=== PATIENT | female | born 1940 | race Caucasian/White ===

== ENCOUNTER 2018-01-19 13:00 | Inpatient (IN) | payer MEDICARE ==
[2018-01-28 16:07] VITALS: BMI 39.6
[2018-02-02] MEDS ORDERED: Levofloxacin 500 mg/D5W 100 ml Premix Bag ONE (06:06)
[2018-02-02] MEDS ORDERED: Midazolam HCl 2 mg/2 ml Vial ONE (06:26)
[2018-02-02] MEDS ORDERED: Fentanyl 100 MCG/2 ML VIAL ONE ×2 (06:26→08:52)
[2018-02-02] MEDS ORDERED: Vancomycin HCl 1.5 GM in Sodium Chloride 0.9% 250 ML 300 ML IVPB SCH ×2 (06:30→18:00)
[2018-02-02] MEDS ORDERED: Zolpidem Tartrate 5 MG TAB PO PRN ×2 (06:46→07:02)
[2018-02-02] MEDS ORDERED: Promethazine HCl 25 MG/ML VIAL IM PRN ×3 (06:46→08:04)
[2018-02-02] MEDS ORDERED: traMADol HCl 50 MG TAB PO PRN ×2 (06:46→07:02)
[2018-02-02] MEDS ORDERED: Ondansetron HCl/PF 4 MG/2 ML Vial IVP PRN ×3 (06:46→08:04)
[2018-02-02] MEDS ORDERED: Fentanyl 100 MCG/2 ML VIAL IV PRN (06:47)
[2018-02-02] MEDS ORDERED: HYDROcodone/Acetaminophen 7.5/325 mg Tablet PO PRN (06:48)
[2018-02-02] MEDS ORDERED: Acetaminophen 325 MG TAB PO PRN (07:02)
[2018-02-02] MEDS ORDERED: HYDROcodone/Acetaminophen 10/325 mg Tablet PO PRN ×2 (07:02)
[2018-02-02] MEDS ORDERED: diphenhydrAMINE 25 MG CAP PO PRN (07:02)
[2018-02-02] MEDS ORDERED: Fentanyl 250 MCG/5 ML VIAL ONE (07:05)
[2018-02-02] MEDS ORDERED: Tranexamic Acid 1,000 MG in Sodium Chloride 0.9% 100 ML IVPB SCH (07:15)
--- NOTE | 2018-02-02 07:59 | RAD ---
TWO VIEWS CHEST: Date: 02-02-18 Comparison: 04-15-17 History: Pre-operative patient. FINDINGS: There is atherosclerotic calcification in the aortic arch. No pneumothorax, pleural fluid, focal cons olidation, or alveolar edema. There is multilevel disc space narrowing and anterior osteophyte formation within the thoracic spine. IMPRESSION: No acute findings. POS: JOSE EDUARDO
[2018-02-02] MEDS ORDERED: Promethazine HCl 25 MG/ML VIAL SLOW IVP PRN (08:04)
--- NOTE | 2018-02-02 09:06 | OP ---
PREOPERATIVE DIAGNOSIS: Degenerative joint disease, left knee. POSTOPERATIVE DIAGNOSIS: Degenerative joint disease, left knee. SURGEON: Cristobal Polk M.D. TOBACCO DIPPER: Sarath Anders PA-C. BLOOD LOSS: Minimal. SPECIMEN: None. DRAINS: None. COMPLICATIONS: None. TOURNIQUET TIME: 52 minutes. IMPLANTS USED: James Triathlon 4 femur, 4 tibia, 9 mm polyethylene, A29 patella. PROCEDURE IN DETAIL: After informed consent was obtained in the preoperative holding area. The edouard ent was taken to the operative suite where general anesthesia was induced. Once adequate level of ge neral anesthesia was obtained, the patient was positioned and a well-padded tourniquet was placed rachael und the left proximal thigh. The left lower extremity was then prepped and draped in the usual steri le fashion. Prior to exsanguination, a time out was called and all members of the surgical team agre ed upon site, surgeon, and patient. The extremity was then exsanguinated and the tourniquet was rais ed. A midline longitudinal incision was then made directly over the patella extending two fingerbrea dths above the superior pole of the patella and two fingerbreadths inferior to the inferior patellar pole of the patella. Deeper subcutaneous layers were dissected sharply and local bleeding was contro lled with Bovie electrocautery. A quad tendon longitudinal split was then made sharply and a median parapatellar arthrotomy was carried out both sharp and with Bovie electrocautery, carried down to one fingerbreadth medial to the tibial tubercle. The knee was then placed into flexion and the patella was everted nicely, and a copious fat pad ectomy was performed allowing for greater exposure of the t ibia. The computer-assisted distal femoral fiducial was then placed and pinned firmly, and the dista l femoral cutting guide was pinned firmly into place. The oscillating saw was then used to remove th e appropriate amount of bone. The 4-in-1 cutting block was then placed on the distal femur and the o scillating saw was used to remove the appropriate amount of bone off of the anterior, posterior, and chamfer cuts. After completion of bone cuts, the anterior cruciate ligament was resected sharply and the posterior cruciate ligament retractor was placed and the tibia was subluxed for better exposure. Partial meniscectomies were carried out, and the tibial computer-assisted fiducial was pinned, and the cutting guide was placed. Oscillating saw was then used to remove the bone with Hohmann retracto rs used to take care and protect the collateral ligaments. After the tibial resection was performed, a laminar shape hand was placed in between the freshened bone cuts. The knee placed at 90 degrees and further bilateral meniscectomies were carried out, and the curved osteotome and curettage was used t o remove any excess bone spurs in the posterior compartment. Exparel was then injected into the post erior capsule, ryan-articular synovia, pre-patella synovia, and musculature surrounding the capsule. The trial femoral component, tibial baseplate were placed with the appropriate polyethylene trial in sert with an appropriate polyethylene spacer and patellar button. The knee was taken through full ra nge of motion with flexion and extension from 0-90 degrees and patellar broach squarely in the troch reji without any squinting or subluxation noted. The knee was also stable to varus and valgus stressi ng at 0, 15, 45, and 90 degrees of flexion. The drawer was negative. All trial components were then removed and the keel punch was used to provide the appropriate defect in the tibia with a mallet. Th e freshened bone cuts were copiously irrigated with pulsatile lavage of about 1-1/2 liters to remove all excess debris. The freshened bone cuts were then dried and with suction and lap sponge. The kne e was placed in flexion and retractors were placed to provide access to all bone cuts. Tobramycin im pregnated methyl methacrylate cement was then placed on the freshened bone cuts and implants which we re malleted firmly into place. Curettage and [place] elevators were used to remove any excess bone facundo ent. The knee was placed into full extension and the patellar button was placed under compression, a nd the cement was allowed to cure. Once completed, the components were again taken through full rang e of motion and copious irrigation of the knee was carried out with another liter of normal saline. All components were inspected fully with full range of motion and varus and valgus stressing. There w as no laxity noted and full extension was observed clinically. Primary closure was accomplished with #2 interrupted Vicryl stitch of the arthrotomy defect. This was oversewn with a #2 running Quill ba rbdianelys stitch. The gravitational platelet system was then injected into the arthrotomy prior to closur e. The subcutaneous layer was then closed with a running 0 barbed Monocryl stitch and skin closure a ccomplished with a running subcuticular 3-0 Monocryl barbed Quill stitch and augmented with cement on the skin. Tourniquet was lowered. Good spontaneous return of distal pulses was noted clinically an d a sterile dressing was applied to the incision. The procedure was terminated without any complicat ions. The patient was awakened in the operative suite and the tourniquet was removed, and the patien t was taken to the recovery room in stable condition.
--- NOTE | 2018-02-02 10:01 | RAD ---
TWO VIEWS RIGHT KNEE: History: Total knee arthroplasty. Comparison: None. FINDINGS: Post-surgical changes are identified. Alignment is near anatomic. IMPRESSION: Post surgical changes. POS: JOSE EDUARDO
[2018-02-02] MEDS: Levothyroxine Sodium 50 MCG TAB PO SCH (10:56)
[2018-02-02] MEDS: HYDROcodone/Acetaminophen 7.5/325 mg Tablet PO PRN ×2 (12:21→18:59)
[2018-02-02] MEDS: Lorazepam 1 MG TAB PO SCH ×2 (12:22→21:01)
[2018-02-02] MEDS: Donepezil HCl 10 MG TAB PO SCH (12:22)
[2018-02-02] MEDS: Aspirin 81 mg Enteric Coated Tablet PO SCH ×2 (12:23→21:00)
[2018-02-02] MEDS: Sodium Chloride 0.9% 1,000 ML IV SCH ×3 (12:27→23:56)
[2018-02-02] MEDS ORDERED: Ketorolac Tromethamine 30 MG/ML VIAL IVP PRN (14:10)
[2018-02-02] MEDS ORDERED: Bupivacaine HCl 0.5%/Epinephrine 1:200,000/PF 30 ml Vial ONE (14:15)
[2018-02-02] MEDS ORDERED: Bupivacaine/Epinephrine 0.25% 30 ML VIAL ONE (14:15)
[2018-02-02] MEDS ORDERED: Labetalol 100 MG/20 ML MDV ONE (14:55)
[2018-02-02] MEDS ORDERED: PROPOFOL 200 MG/20 ML VIAL ONE (14:55)
[2018-02-02] MEDS ORDERED: Dexamethasone 20 MG/5 ML VIAL ONE (14:55)
[2018-02-02] MEDS ORDERED: Lidocaine 1% PF 5 ML VIAL ONE (14:55)
[2018-02-02] MEDS ORDERED: FLU VACC TS2017-18 (>65YR) 0.5 ML SYRINGE IM ONE (18:15)
[2018-02-02] MEDS ORDERED: Prevnar 13-Val Conj/PF 0.5 ML SYRINGE IM ONE (18:30)
[2018-02-02] MEDS: diphenhydrAMINE 25 MG CAP PO SCH (21:00)
--- NOTE | 2018-02-02 21:00 | PDOC.PN ---
- Subjective Encounter Start Date: 02/02/18 Encounter Start Time: 20:45 Subjective: Consult for general med mgmt s/p L TKA. Hx of hypothyroidism, dementia -: anxiety and depression. Reviewed all pertinent hx, labs, rads. No new -: complaints currently. No SOB, CP, fever. - Objective MAR Reviewed: Yes Vital Signs & Weight: Vital Signs (12 hours) Temp Pulse Resp BP Pulse Ox 02/02/18 20:00 98.0 F 72 16 114/52 L 94 L 02/02/18 12:00 97.6 F 61 18 145/71 H 99 Weight Weight 203 lb I&O: 02/01/18 02/02/18 02/03/18 06:59 06:59 06:59 Intake Total 1650 Output Total 850 Balance 800 Additional Labs: Laboratory Tests 06/11/12 12/07/17 01/28/18 08:28 15:17 16:20 WBC Hgb Hct Plt Count PT INR APTT Sodium 138 Potassium 4.0 Chloride 105 Carbon Dioxide 23 Anion Gap 14 BUN 20 Est GFR (Non-Af Amer) 69 Creatinine 0.93 Estimated GFR (MDRD) 58 Glucose 111 H Calcium 9.4 TSH 3rd Generation 1.9456 01/28/18 01/28/18 16:20 16:20 WBC 6.8 Hgb 13.6 Hct 41.2 Plt Count 255 PT 12.8 INR 1.0 APTT 26.6 Sodium Potassium Chloride Carbon Dioxide Anion Gap BUN Est GFR (Non-Af Amer) Creatinine Estimated GFR (MDRD) Glucose Calcium TSH 3rd Generation Radiology Reviewed by me: Yes (PCXR - no acute findings) EKG Reviewed by me: Yes ( - NSR, no acute changes, HR 60's) Phys Exam - Physical Examination Constitutional: NAD HEENT: PERRLA, oral pharynx no lesions Neck: no JVD, supple Respiratory: no wheezing, clear to auscultation bilateral Cardiovascular: RRR Gastrointestinal: soft, non-tender, no distention, positive bowel sounds L knee with surgical dressing in place Musculoskeletal: pulses present, edema present Neurological: moves all 4 limbs Skin: normal turgor, cap refill <2 seconds Dx/Plan (1) Hypothyroidism Code(s): E03.9 - HYPOTHYROIDISM, UNSPECIFIED Status: Chronic Comment: continue Levothyroxine 50mcg po daily (2) Dementia Code(s): F03.90 - UNSPECIFIED DEMENTIA WITHOUT BEHAVIORAL DISTURBANCE Status: Chronic Comment: Continue Donezepil 10mg qam (3) CKD (chronic kidney disease) stage 3, GFR 30-59 ml/min Code(s): N18.3 - CHRONIC KIDNEY DISEASE, STAGE 3 (MODERATE) Status: Chronic Comment: Stable currently, avoid nephrotoxic meds and limit contrast exposure, continue IVF's 125ml/h (4) Status post left knee replacement Code(s): Z96.652 - PRESENCE OF LEFT ARTIFICIAL KNEE JOINT Status: Acute Comment: post-op L TKA 02/02/18, pain control, ASA 81mg BID, Joint U protocol, DVT ppx - Plan plan discussed w/ family, PT/OT, aids social worker, out of bed/ambulate, DVT proph w/SCDs Stable overall -: Continue pain control per Joint U protocol -: ASA 81mg BID -: Continue IVF's -: AM lab: CBC * Thank you for the consult, will continue to follow with primary service.
[2018-02-02] MEDS: Bupivacaine 0.5% 50 ML in Sodium Chloride 0.9% 50 ML NERVE BLCK SCH (21:02)
[2018-02-03] MEDS: traMADol HCl 50 MG TAB PO PRN (03:35)
[2018-02-03] MEDS: Bupivacaine 0.5% 50 ML in Sodium Chloride 0.9% 50 ML NERVE BLCK SCH ×2 (05:23→19:59)
[2018-02-03 05:47] LABS: Hemoglobin 10.8 g/dL (12.0-16.0); Mean Corpuscular HGB CONC 34.1 g/dL (32.0-36.0); Mean Corpuscular Hemoglobin 31.7 pg (27.0-31.0); Mean Platelet Volume 6.6 fL (7.4-10.4); Platelet Count 195 thou/uL (130-400); RBC Distribution Width 12.1 % (11.5-14.5); White Blood Cell (WBC) Count 7.9 thou/uL (4.8-10.8)
[2018-02-03] MEDS: HYDROcodone/Acetaminophen 7.5/325 mg Tablet PO PRN ×4 (07:25→23:54)
[2018-02-03] MEDS: Lorazepam 1 MG TAB PO SCH ×2 (07:28→19:54)
[2018-02-03] MEDS: Donepezil HCl 10 MG TAB PO SCH (08:52)
[2018-02-03] MEDS: Senokot S 8.6-50 MG TAB PO SCH ×2 (08:52→19:54)
[2018-02-03] MEDS: Levothyroxine Sodium 50 MCG TAB PO SCH (08:53)
[2018-02-03] MEDS: Aspirin 81 mg Enteric Coated Tablet PO SCH ×2 (08:53→19:54)
[2018-02-03] MEDS: Ferrous Gluconate 324 MG TAB PO SCH ×2 (08:53→19:54)
[2018-02-03] MEDS: Multivitamin W/ Minerals 1 TAB PO SCH (08:53)
[2018-02-03] MEDS: Sodium Chloride 0.9% 1,000 ML IV SCH ×2 (14:04→21:58)
[2018-02-03] MEDS: diphenhydrAMINE 25 MG CAP PO SCH (19:54)
--- NOTE | 2018-02-03 21:35 | PDOC.PN ---
- Subjective Encounter Start Date: 02/03/18 Encounter Start Time: 19:00 Patient seen and examined. No new complaints. No overnight events - Objective MAR Reviewed: Yes Vital Signs & Weight: Vital Signs (12 hours) Temp Pulse Resp BP Pulse Ox 02/03/18 15:13 97.5 F L 75 16 146/71 H 92 L 02/03/18 11:39 97.7 F 67 16 119/69 97 Weight Admit Weight 203 lb Weight 203 lb I&O: 02/02/18 02/03/18 02/04/18 06:59 06:59 06:59 Intake Total 3090 Output Total 1950 Balance 1140 Result Diagrams: 02/03/18 04:55 Phys Exam - Physical Examination Constitutional: NAD Respiratory: no wheezing, no rhonchi Cardiovascular: RRR, no rub Gastrointestinal: soft, non-tender, positive bowel sounds Musculoskeletal: no edema Dx/Plan - Plan DVT proph w/SCDs IMPRESSION: 1. Hypothyroidism 2. Obesity BMI 39.6 3. Dementia 4. CKD 3 PLAN: * Cont Levothyroxine/Aricept * Cont current meds as below * Add Miralax PRN * Cont therapy Review of Systems - Review of Systems Cardiovascular: negative: chest pain, palpitations, orthopnea, paroxysmal nocturnal dyspnea, edema, light headedness, other Gastrointestinal: negative: Nausea, Vomiting, Abdominal Pain, Diarrhea, Constipation, Melena, Hematochezia, Other - Medications/Allergies Allergies/Adverse Reactions: Allergies Allergy/AdvReac Type Severity Reaction Status Date / Time amoxicillin [From Augmentin] Allergy Verified 01/28/18 16:08 clavulanic acid Allergy Verified 01/28/18 16:08 [From Augmentin] Medications: Current Medications Acetaminophen (Tylenol) 650 mg PO Q4H PRN PRN Reason: VAUGHAN/ T > 101F; Mild Pain (1-3) Hydrocodone Bitart/Acetaminophen ([place] 7.5/325) 1 tab PO Q4H PRN PRN Reason: Mild Pain (1-3) Hydrocodone Bitart/Acetaminophen ([place] 7.5/325) 2 tab PO Q4H PRN PRN Reason: Moderate Pain (4-6) Last Admin: 02/03/18 19:53 Dose: 2 tab Aspirin (Ecotrin) 81 mg PO BID [facility] Last Admin: 02/03/18 19:54 Dose: 81 mg Diphenhydramine HCl (Benadryl) 25 mg PO Q6H PRN PRN Reason: Itching Diphenhydramine HCl (Benadryl) 50 mg PO HS [facility] Last Admin: 02/03/18 19:54 Dose: 50 mg Donepezil HCl (Aricept) 10 mg PO QAM [facility] Last Admin: 02/03/18 08:52 Dose: 10 mg Fentanyl (Sublimaze) 50 mcg IV Q1H PRN PRN Reason: BREAKTHROUGH PAIN Last Admin: 02/02/18 10:50 Dose: 50 mcg Ferrous Gluconate (Fergon) 324 mg PO BID [facility] Last Admin: 02/03/18 19:54 Dose: 324 mg Bupivacaine HCl 50 ml/ Sodium (Chloride) 100 mls @ 0 mls/hr NERVE BLCK INF [facility] PRN Reason: As Directed Last Admin: 02/03/18 19:59 Dose: 100 mls Sodium Chloride (Normal Saline 0.9%) 1,000 mls @ 100 mls/hr IV .Q10H [facility] Last Admin: 02/03/18 14:04 Dose: Not Given Iron/Minerals/Multivitamins (Theragran M) 1 tab PO DAILY [facility] Last Admin: 02/03/18 08:53 Dose: 1 tab Ketorolac Tromethamine (Toradol) 15 mg IVP Q6H PRN PRN Reason: Pain Stop: 02/07/18 14:11 Levothyroxine Sodium (Synthroid) 50 mcg PO QAM [facility] Last Admin: 02/03/18 08:53 Dose: 50 mcg Lorazepam (Ativan) 0.5 mg PO BID [facility] Last Admin: 02/03/18 19:54 Dose: 0.5 mg Ondansetron HCl (Zofran) 4 mg IVP Q6H PRN PRN Reason: Nausea/Vomiting Promethazine HCl (Phenergan) 12.5 mg IM Q4H PRN PRN Reason: Nausea Senna/Docusate Sodium (Senokot S) 2 tab PO BID [facility] Last Admin: 02/03/18 19:54 Dose: 2 tab Sodium Chloride (Flush - Normal Saline) 10 ml IVF PRN PRN PRN Reason: Saline Flush Tramadol HCl (Ultram) 50 mg PO Q6H PRN PRN Reason: Mild Pain (1-3) Tramadol HCl (Ultram) 100 mg PO Q6H PRN PRN Reason: Moderate Pain 4-6 Last Admin: 02/03/18 03:35 Dose: 100 mg Zolpidem Tartrate (Ambien) 5 mg PO HSPRN PRN PRN Reason: Insomnia
[2018-02-03] MEDS ORDERED: Polyethylene Glycol 3350 17 GM Packet PO PRN (21:54)
[2018-02-04] MEDS: traMADol HCl 50 MG TAB PO PRN (03:32)
[2018-02-04 05:58] LABS: Hemoglobin 10.6 g/dL (12.0-16.0); Mean Corpuscular HGB CONC 33.7 g/dL (32.0-36.0); Mean Corpuscular Hemoglobin 31.4 pg (27.0-31.0); Mean Corpuscular Volume 93.1 fl (81.0-99.0); Mean Platelet Volume 6.7 fL (7.4-10.4); Platelet Count 191 thou/uL (130-400); RBC Distribution Width 12.2 % (11.5-14.5); Red Blood Cell (RBC) Count 3.39 mill/uL (4.20-5.40); White Blood Cell (WBC) Count 9.6 thou/uL (4.8-10.8)
[2018-02-04] MEDS: HYDROcodone/Acetaminophen 7.5/325 mg Tablet PO PRN (07:44)
[2018-02-04] MEDS: Lorazepam 1 MG TAB PO SCH (07:46)
[2018-02-04] MEDS: Aspirin 81 mg Enteric Coated Tablet PO SCH (08:59)
[2018-02-04] MEDS: Levothyroxine Sodium 50 MCG TAB PO SCH (08:59)
[2018-02-04] MEDS: Multivitamin W/ Minerals 1 TAB PO SCH (08:59)
[2018-02-04] MEDS: Donepezil HCl 10 MG TAB PO SCH (08:59)
[2018-02-04] MEDS: Ferrous Gluconate 324 MG TAB PO SCH (08:59)
[2018-02-04] MEDS: Senokot S 8.6-50 MG TAB PO SCH (09:00)
[2018-02-04 12:02] VITALS: BP 112/67; TEMP 98
[2018-02-04] MEDS: Sodium Chloride 0.9% 1,000 ML IV SCH (12:56)
[2018-02-04] MEDS ORDERED: Lorazepam 1 MG TAB PO SCH (13:00)
--- NOTE | 2018-02-05 14:11 | DIS ---
DATE OF ADMISSION: 02/02/2018 DATE OF DISCHARGE: 02/04/2018 DISCHARGE DISPOSITION: To inpatient rehabilitation. ADMISSION DIAGNOSIS: End-stage tricompartmental osteoarthritis, left knee. DISCHARGE DIAGNOSIS: End-stage tricompartmental osteoarthritis, left knee. OPERATIVE PROCEDURE: Left total knee arthroplasty. CONSULTANTS: [facility] for acute postop pain management, [facility] for m edical management, and Dr. Ny Vazquez for inpatient rehabilitation. BRIEF CLINICAL HISTORY: Barbra is a 77-year-old white female, who was admitted to [facility] and underwent the above elective procedure on day of admission without intra, ryan, or postop complication. Hospital course was significant for failures to meet milestones and home discha rge criteria. Therefore, inpatient rehabilitation consult was arranged. The patient was accepted. At the time of transfer, the patient is afebrile. She is ambulatory with assist, tolerating regular diet, and voiding. Her incision is clean and closed. She is neurovascularly intact in the involved extremity. DISCHARGE MEDICATIONS: Please see medication reconciliation form. We will have to see the patient on an as needed basis between now and next appointment in 2-3 weeks. CONDITION ON TRANSFER: Stable. PROGNOSIS: Good.
== END 2018-02-04 14:08 | DRG 470 ==
LOC: SJJU 02-02 05:44
PROVIDERS: ADMIT Orthopaedic Surgery; ATTEND Orthopaedic Surgery
PROC: 0SRD0J9 Replacement of Left Knee Joint with Synthetic Substitute, Cemented, Open Approach (ICD-10-PCS; principal; 2018-02-02)
PROC: 3E0T3BZ Introduction of Anesthetic Agent into Peripheral Nerves and Plexi, Percutaneous Approach (ICD-10-PCS; 2018-02-02)
DX: M17.12 Unilateral primary osteoarthritis, left knee (principal); F03.90 Unspecified dementia, unspecified severity, without behavioral disturbance, psychotic disturbance, mood disturbance, and anxiety; N18.3 Chronic kidney disease, stage 3 (moderate); E03.9 Hypothyroidism, unspecified; E66.9 Obesity, unspecified; Z68.36 Body mass index [BMI] 36.0-36.9, adult; M25.462 Effusion, left knee; M21.162 Varus deformity, not elsewhere classified, left knee; I12.9 Hypertensive chronic kidney disease with stage 1 through stage 4 chronic kidney disease, or unspecified chronic kidney disease; F41.9 Anxiety disorder, unspecified; F32.9 Major depressive disorder, single episode, unspecified
CPT/HCPCS: 36415; 71046; 85027; 86850; 86900; 86901; 86922; C1713; C1776; G8978-GP-CM; G8979-GP-CJ; G8987-GO-CK; G8988-GO-CI; J0670; J1100; J1885; J1956; J2001; J2250; J2704; J3010; J3370; J3490; J7050

== ENCOUNTER 2018-01-28 15:35 | Outpatient (CLI) | payer MEDICARE ==
[2018-01-28 17:11] LABS: Hemoglobin 13.6 g/dL (12.0-16.0); Mean Corpuscular HGB CONC 33.1 g/dL (32.0-36.0); Mean Corpuscular Hemoglobin 30.7 pg (27.0-31.0); Mean Corpuscular Volume 92.9 fl (81.0-99.0); Mean Platelet Volume 6.6 fL (7.4-10.4); Platelet Count 255 thou/uL (130-400); RBC Distribution Width 12.3 % (11.5-14.5); Red Blood Cell (RBC) Count 4.44 mill/uL (4.20-5.40); White Blood Cell (WBC) Count 6.8 thou/uL (4.8-10.8)
[2018-01-28 17:17] LABS: PTT 26.6 SEC (22.9-36.1); Prothrombin Time 12.8 SEC (12.0-14.7)
[2018-01-28 17:33] LABS: ALT (SGPT) 10 U/L (8-55); AST (SGOT) 18 U/L (5-34); Albumin 3.9 g/dL (3.4-4.8); Alkaline Phosphatase 94 U/L (40-150); Anion Gap 14 mmol/L (10-20); BUN (Urea Nitrogen) 20 mg/dL (9.8-20.1); Bilirubin, Total 0.4 mg/dL (0.2-1.2); Calc. Creatinine Clearance 0 mL/min (70-130); Calcium 9.4 mg/dL (7.8-10.44); Carbon Dioxide 23 mmol/L (23-31); Chloride 105 mmol/L (98-107); Estimated GFR-MDRD 58; Globulin 2.7 g/dL (2.4-3.5); Glucose 111 mg/dL (83-110); Protein, Total 6.6 g/dL (6.0-8.3); Sodium 138 mmol/L (136-145)
[2018-01-28 17:44] LABS: Bilirubin Negative (Negative); Blood, Urine Negative (Negative); Clarity TURBID (Clear); Glucose, Urine (Dipstick) Negative (Negative); Leukocyte Large (Negative); Nitrite Positive (Negative); Protein, Urine (Dipstick) Negative (Neg-Trace); Specific Gravity, Urine 1.023 (1.002-1.036); Urobilinogen 0.2 mg/dL (0.2-1.0); pH, Urine 5.5 (5.0-9.0)
[2018-01-28 17:48] LABS: Bacteria/HPF 4+ HPF (None Seen); Hyaline Casts/LPF 0-3 HYALINE CAST LPF (0-3 Hyaline); Pathc Cast-AUWi Flag 1.01 (0-2.49)
--- NOTE | 2018-01-30 18:36 | EKG ---
Test Reason : Blood Pressure : / mmHG Vent. Rate : 069 BPM Atrial Rate : 069 BPM P-R Int : 162 ms QRS Dur : 084 ms QT Int : 434 ms P-R-T Axes : 071 055 041 degrees QTc Int : 465 ms Normal sinus rhythm Normal ECG When compared with ECG of 15-APR-2017 18:29, No significant change was found Confirmed by RENE RODRIGUEZ, SKiara ([id number]) on 01/30/2018 6:36:00 PM Referred By: ROMI Confirmed By:DR. Linda LÓPEZ MD
== END 2018-01-28 15:36 | disposition home or self-care (01) ==
LOC: LABBT 15:35
PROVIDERS: ATTEND Orthopaedic Surgery
DX: Z01.818 Encounter for other preprocedural examination (principal); M17.12 Unilateral primary osteoarthritis, left knee
CPT/HCPCS: 80053; 81001; 85027; 85610; 85730; 86850; 86870; 86900; 86901; 87081; 93005; 93010

== ENCOUNTER 2019-09-30 13:35 | Outpatient (CLI) | payer MEDICARE ==
--- NOTE | 2019-09-30 14:37 | MRI ---
MRI LUMBAR SPINE NONCONTRAST: DATE: 09/30/2019 HISTORY: 79-year-old female with low back pain, lumbar spinal stenosis, and lumbar radiculopathy. COMPARISON: none FINDINGS: For the purposes of this report, it will be assumed that there are 5 lumbar-type vertebrae. Vertebral body heights are maintained. Disc space narrowing: Moderate at T11-12 and T12-L1, mild to moderate at L1-2 and L2-3. Severe at L3- 4 and L4-5. Mild to moderate at L5-S1. No major spondylolisthesis. Patchy bone marrow edema at endplates at T12-L1, L2-3, and L3-4, probably representing Modic type I changes. Diffuse broad-based disc bulge-osteophytic bar complex is protruding into the spinal canal at all visualized levels. Conus medullaris terminates at L1. T12-L1:No central stenosis. No significant neural foraminal stenosis. L1-2:No central stenosis or significant neural foraminal stenosis. L2-3:Moderately large diffuse disc bulge, asymmetrically larger at the left paracentral-lateral aspec ts of spinal canal than on the right. Moderate central spinal canal stenosis, especially the left side. No right neural foraminal stenosis. Mild left neural foraminal stenosis. Mild bilateral facet D CHANDA. Ligamentum flavum thickening. L3-4:No high-grade central stenosis. Mild bilateral neural foraminal stenosis. L4-5:No high-grade central stenosis. Mild to moderate lateral recess stenosis bilaterally. Mild bilat eral neural foraminal stenosis. L5-S1:No central stenosis. No high-grade neural foraminal stenosis. Large far lateral disc-osteophyte complexes protruding into the right and left prevertebral space. This contacts the bilateral exiting L5 nerve roots far peripherally without daniel compression. IMPRESSION: 1) moderate lumbar spondylosis, with multilevel degenerative disc disease and facet osteoarthrosis of varying degrees. 2) no high-grade central spinal canal stenosis or high-grade neural foraminal stenosis at any level.
== END 2019-09-30 13:36 | disposition home or self-care (01) ==
LOC: BICMRI 13:35
PROVIDERS: ATTEND Orthopaedic Surgery
DX: M48.061 Spinal stenosis, lumbar region without neurogenic claudication (principal); M47.816 Spondylosis without myelopathy or radiculopathy, lumbar region; M51.36 Other intervertebral disc degeneration, lumbar region
CPT/HCPCS: 72148

== ENCOUNTER 2021-04-17 19:02 | Inpatient (IN) | payer MEDICARE ==
[2021-04-17 20:40] LABS: #Eosinphils 0.5 thou/uL (0.0-0.7); #Lymphocytes 1.2 thou/uL (1.20-3.40); #Monocytes 0.7 thou/uL (0.11-0.59); #Neutrophils 6.7 thou/uL (1.40-6.50); %Basophils 0.4 % (0.0-1.0); %Eosinophils 5.3 % (0.0-10.0); %Lymphocytes 13.2 % (21.0-51.0); %Monocytes 7.9 % (0.0-10.0); %Neutrophils 73.3 % (42.0-75.0); Hemoglobin 13.6 g/dL (12.0-16.0); Mean Corpuscular HGB CONC 33.9 g/dL (32.0-36.0); Mean Corpuscular Hemoglobin 31.1 pg (27.0-31.0); Mean Corpuscular Volume 91.6 fL (78.0-98.0); Mean Platelet Volume 7.2 fL (7.4-10.4); Platelet Count 249 thou/uL (130-400); RBC Distribution Width 12.8 % (11.5-14.5); Red Blood Cell (RBC) Count 4.39 mill/uL (4.20-5.40); White Blood Cell (WBC) Count 9.1 thou/uL (4.8-10.8)
[2021-04-17 21:02] LABS: ALT (SGPT) 9 U/L (8-55); AST (SGOT) 18 U/L (5-34); Albumin 3.7 g/dL (3.4-4.8); Alkaline Phosphatase 106 U/L (40-110); Anion Gap 10 mmol/L (10-20); BUN (Urea Nitrogen) 21 mg/dL (9.8-20.1); Bilirubin, Total 0.2 mg/dL (0.2-1.2); Calc. Creatinine Clearance 0 mL/min (70-130); Calcium 9.5 mg/dL (7.8-10.44); Carbon Dioxide 26 mmol/L (23-31); Chloride 106 mmol/L (98-107); Glucose 110 mg/dL (83-110); Protein, Total 6.7 g/dL (5.8-8.1); Sodium 138 mmol/L (136-145)
[2021-04-17 21:42] LABS: Bilirubin Negative (Negative); Blood, Urine Negative (Negative); Glucose, Urine (Dipstick) Negative (Negative); Ketone, Urine Negative (Negative); Leukocyte Negative (Negative); Nitrite Negative (Negative); Protein, Urine (Dipstick) Negative (Neg-Trace); Urobilinogen 0.2 mg/dL (Less than 2)
[2021-04-17 21:43] LABS: Clarity Clear (Clear)
[2021-04-18] MEDS ORDERED: traZODone HCl 50 MG TAB ONE (01:42)
[2021-04-18 03:08] VITALS: BMI 40.0
[2021-04-18] MEDS ORDERED: Acetaminophen 325 MG TAB PO PRN (04:15)
[2021-04-18] MEDS ORDERED: Ondansetron PF 4 MG/2 ML Vial IVP PRN (04:15)
[2021-04-18] MEDS ORDERED: Ondansetron ODT 4 MG TAB SL PRN (04:15)
[2021-04-18] MEDS: Sodium Chloride 0.9% 1,000 ML IV SCH ×2 (05:00→12:31)
[2021-04-18 13:55] LABS: Thyroid Stimulating Hormone 2.6285 uIU/mL (0.35-4.94)
[2021-04-18 14:02] LABS: SARS-CoV-2 PCR by NAA Not Detected (NotDetected)
[2021-04-18] MEDS: Metoclopramide HCl 10 MG/2 ML VIAL IVP PRN (16:50)
[2021-04-18] MEDS: Lorazepam 0.5 MG TAB PO PRN (16:51)
[2021-04-18] MEDS: Atorvastatin Calcium 10 MG TAB PO SCH (19:38)
[2021-04-18] MEDS: traZODone HCl 150 MG TAB PO SCH (19:39)
[2021-04-18] MEDS: Doxycycline 100 MG CAP PO SCH (19:39)
[2021-04-19] MEDS: Levothyroxine Sodium 50 MCG TAB PO SCH (05:09)
[2021-04-19 06:22] LABS: #Eosinphils 0.5 thou/uL (0.0-0.7); #Lymphocytes 1.1 thou/uL (1.20-3.40); #Monocytes 0.6 thou/uL (0.11-0.59); #Neutrophils 4.6 thou/uL (1.40-6.50); %Basophils 0.4 % (0.0-1.0); %Eosinophils 7.4 % (0.0-10.0); %Lymphocytes 16.4 % (21.0-51.0); %Monocytes 8.3 % (0.0-10.0); %Neutrophils 67.5 % (42.0-75.0); Hemoglobin 12.6 g/dL (12.0-16.0); Mean Corpuscular Hemoglobin 29.3 pg (27.0-31.0); Mean Corpuscular Volume 91.6 fL (78.0-98.0); Mean Platelet Volume 7.4 fL (7.4-10.4); Platelet Count 237 thou/uL (130-400); RBC Distribution Width 12.9 % (11.5-14.5); Red Blood Cell (RBC) Count 4.29 mill/uL (4.20-5.40); White Blood Cell (WBC) Count 6.7 thou/uL (4.8-10.8)
[2021-04-19 06:38] LABS: Anion Gap 10 mmol/L (10-20); BUN (Urea Nitrogen) 15 mg/dL (9.8-20.1); Calc. Creatinine Clearance 78 mL/min (70-130); Calcium 9.1 mg/dL (7.8-10.44); Carbon Dioxide 24 mmol/L (23-31); Chloride 109 mmol/L (98-107); Glucose 105 mg/dL (83-110); Potassium 4.1 mmol/L (3.5-5.1); Sodium 139 mmol/L (136-145)
[2021-04-19] MEDS: Doxycycline 100 MG CAP PO SCH ×2 (08:27→20:18)
[2021-04-19] MEDS: Citalopram 20 MG TAB PO SCH (08:27)
[2021-04-19] MEDS: Donepezil HCl 10 MG TAB PO SCH (08:27)
[2021-04-19] MEDS: Saccharomyces boulardii 250 MG CAP PO SCH (08:27)
[2021-04-19] MEDS: Lorazepam 0.5 MG TAB PO PRN ×2 (10:51→16:32)
[2021-04-19] MEDS: Atorvastatin Calcium 10 MG TAB PO SCH (20:17)
[2021-04-19] MEDS: traZODone HCl 150 MG TAB PO SCH (20:17)
[2021-04-20] MEDS: Levothyroxine Sodium 50 MCG TAB PO SCH (05:52)
[2021-04-20] MEDS: Citalopram 20 MG TAB PO SCH (08:27)
[2021-04-20] MEDS: Donepezil HCl 10 MG TAB PO SCH (08:27)
[2021-04-20] MEDS: Doxycycline 100 MG CAP PO SCH ×2 (08:27→20:15)
[2021-04-20] MEDS: Aspirin Chewable 81 MG TAB PO SCH (08:27)
[2021-04-20] MEDS: Saccharomyces boulardii 250 MG CAP PO SCH (08:27)
[2021-04-20] MEDS: Lorazepam 0.5 MG TAB PO PRN (17:53)
[2021-04-20] MEDS: traZODone HCl 150 MG TAB PO SCH (20:15)
[2021-04-20] MEDS: Acetaminophen 325 MG TAB PO PRN (20:15)
[2021-04-20] MEDS: Atorvastatin Calcium 10 MG TAB PO SCH (20:15)
[2021-04-21] MEDS: Levothyroxine Sodium 50 MCG TAB PO SCH (05:49)
[2021-04-21] MEDS: Aspirin Chewable 81 MG TAB PO SCH (08:16)
[2021-04-21] MEDS: Donepezil HCl 10 MG TAB PO SCH (08:16)
[2021-04-21] MEDS: Saccharomyces boulardii 250 MG CAP PO SCH (08:16)
[2021-04-21] MEDS: Doxycycline 100 MG CAP PO SCH ×2 (08:16→20:25)
[2021-04-21] MEDS: Citalopram 20 MG TAB PO SCH (08:16)
[2021-04-21] MEDS: Metoclopramide HCl 10 MG/2 ML VIAL IVP PRN (09:35)
[2021-04-21] MEDS: risperiDONE 0.25 MG TAB PO SCH (13:58)
[2021-04-21] MEDS: traZODone HCl 150 MG TAB PO SCH (20:25)
[2021-04-21] MEDS: Atorvastatin Calcium 10 MG TAB PO SCH (20:25)
[2021-04-22] MEDS: Levothyroxine Sodium 50 MCG TAB PO SCH (05:23)
[2021-04-22] MEDS: Aspirin Chewable 81 MG TAB PO SCH (09:05)
[2021-04-22] MEDS: Saccharomyces boulardii 250 MG CAP PO SCH (09:05)
[2021-04-22] MEDS: Citalopram 20 MG TAB PO SCH (09:05)
[2021-04-22] MEDS: Doxycycline 100 MG CAP PO SCH (09:05)
[2021-04-22] MEDS: Donepezil HCl 10 MG TAB PO SCH (09:05)
[2021-04-22] MEDS: Acetaminophen 325 MG TAB PO PRN (09:08)
[2021-04-22] MEDS: Metoclopramide HCl 10 MG/2 ML VIAL IVP PRN (09:09)
[2021-04-22] MEDS ORDERED: Fleet Enema 133 ML BOT FS PRN (10:10)
[2021-04-22] MEDS ORDERED: Bisacodyl 10 MG SUPP PR SCH (10:15)
[2021-04-22] MEDS ORDERED: Iopamidol 370 76% 100 ML VIAL ONE (13:47)
[2021-04-22] MEDS: risperiDONE 0.25 MG TAB PO SCH (14:35)
[2021-04-22 16:27] VITALS: BP 154/79; TEMP 96.4
[2021-04-22] MEDS ORDERED: traZODone HCl 50 MG TAB PO SCH (21:00)
== END 2021-04-22 16:09 | disposition home or self-care (01) | DRG 57 ==
LOC: ERS 19:02 → T4-B 04-18 01:27
PROVIDERS: ADMIT Student in an Organized Health Care Education/Training Program; ATTEND Internal Medicine
DX: G30.9 Alzheimer's disease, unspecified (principal); F02.81 Dementia in other diseases classified elsewhere, unspecified severity, with behavioral disturbance; G93.49 Other encephalopathy; Z66 Do not resuscitate; Z20.822 Contact with and (suspected) exposure to COVID-19; E03.9 Hypothyroidism, unspecified; E78.5 Hyperlipidemia, unspecified; Z96.653 Presence of artificial knee joint, bilateral; F32.9 Major depressive disorder, single episode, unspecified; F41.9 Anxiety disorder, unspecified; I10 Essential (primary) hypertension; G47.00 Insomnia, unspecified; M19.90 Unspecified osteoarthritis, unspecified site; E66.01 Morbid (severe) obesity due to excess calories; J32.0 Chronic maxillary sinusitis; Z68.41 Body mass index [BMI] 40.0-44.9, adult; Z90.710 Acquired absence of both cervix and uterus; Z88.1 Allergy status to other antibiotic agents; Z88.8 Allergy status to other drugs, medicaments and biological substances; Z79.890 Hormone replacement therapy; Z79.899 Other long term (current) drug therapy; Z86.73 Personal history of transient ischemic attack (TIA), and cerebral infarction without residual deficits
CPT/HCPCS: 36415; 70450; 70551; 71045; 74177; 80048; 80053; 81003; 82607; 82746; 84443; 85025; J2765; Q9967; U0003; U0005

== ENCOUNTER 2022-02-07 16:25 | Emergency (ER) | payer MEDICARE ==
[2022-02-07] MEDS ORDERED: Lidocaine 1% (PF) 30 ML VIAL ONE (18:11)
[2022-02-07] MEDS ORDERED: Morphine 4 MG/ML VIAL ONE (19:07)
[2022-02-07] MEDS ORDERED: Midazolam HCl 2 mg/2 ml Vial ONE (19:43)
== END 2022-02-07 21:22 | disposition home or self-care (01) ==
LOC: ERS 16:25
DX: S52.572A Other intraarticular fracture of lower end of left radius, initial encounter for closed fracture (principal); I10 Essential (primary) hypertension; E03.9 Hypothyroidism, unspecified; E78.5 Hyperlipidemia, unspecified; Z79.890 Hormone replacement therapy; Z79.899 Other long term (current) drug therapy; W18.30XA Fall on same level, unspecified, initial encounter; Y92.009 Unspecified place in unspecified non-institutional (private) residence as the place of occurrence of the external cause
CPT/HCPCS: 25605; 96374; 96375; J2001; J2250; J2270

== ENCOUNTER 2023-02-28 13:43 | Emergency (ER) | payer MEDICARE ==
[2023-02-28 16:29] LABS: #Basophils 0.1 thou/uL (0.0-0.2); #Eosinphils 0.2 thou/uL (0.0-0.7); #Lymphocytes 1.2 thou/uL (1.20-3.40); #Monocytes 0.7 thou/uL (0.11-0.59); #Neutrophils 6.9 thou/uL (1.40-6.50); %Basophils 0.7 % (0.0-1.0); %Eosinophils 2.1 % (0.0-10.0); %Monocytes 7.9 % (0.0-10.0); %Neutrophils 76.3 % (42.0-75.0); Hemoglobin 13.9 g/dL (12.0-16.0); Mean Corpuscular HGB CONC 33.2 g/dL (32.0-36.0); Mean Corpuscular Hemoglobin 31.2 pg (27.0-31.0); Mean Corpuscular Volume 93.8 fl (78.0-98.0); Mean Platelet Volume 7.4 fL (7.4-10.4); Platelet Count 226 10x3/uL (130-400); Red Blood Cell (RBC) Count 4.46 mill/uL (4.20-5.40)
[2023-02-28 16:51] LABS: ALT (SGPT) 9 U/L (8-55); AST (SGOT) 19 U/L (5-34); Albumin 3.9 g/dL (3.4-4.8); Alkaline Phosphatase 105 U/L (40-110); Anion Gap 14 mmol/L (10-20); BUN (Urea Nitrogen) 18 mg/dL (9.8-20.1); Bilirubin, Total 0.2 mg/dL (0.2-1.2); Calc. Creatinine Clearance 0 mL/min (70-130); Calcium 9.8 mg/dL (7.8-10.44); Carbon Dioxide 26 mmol/L (23-31); Chloride 108 mmol/L (98-107); Estimated GFR 49; Globulin 3.2 g/dL (2.4-3.5); Glucose 86 mg/dL (83-110); Potassium 3.6 mmol/L (3.5-5.1); Protein, Total 7.1 g/dL (5.8-8.1); Sodium 144 mmol/L (136-145)
[2023-02-28 17:57] LABS: Bacteria/HPF 2+ HPF (None Seen); Bilirubin Negative (Negative); Blood, Urine Negative (Negative); Clarity Turbid (Clear); Glucose, Urine (Dipstick) Normal (Negative); Ketone, Urine Negative (Negative); Leukocyte 25 Leu/uL (Negative); Nitrite Negative (Negative); Protein, Urine (Dipstick) Negative (Neg-Trace); Specific Gravity, Urine 1.019 (1.002-1.036); Urobilinogen Normal mg/dL (Less than 2); pH, Urine 7.5 (5.0-9.0)
[2023-02-28] MEDS ORDERED: Lorazepam 1 MG TAB ONE (18:20)
[2023-02-28] MEDS ORDERED: cefTRIAXone (ROCEPHIN) 2 GM VIAL ONE (18:32)
== END 2023-02-28 19:49 | disposition home or self-care (01) ==
LOC: ERS 13:43
DX: N39.0 Urinary tract infection, site not specified (principal); E78.5 Hyperlipidemia, unspecified; E03.9 Hypothyroidism, unspecified; I10 Essential (primary) hypertension; Z79.899 Other long term (current) drug therapy
CPT/HCPCS: 36415; 51701; 71045; 80053; 81003; 81015; 83605; 83880; 85025; 87040; 87086; 93005; 96365; J0696